=== PATIENT | female | born 1950 | race Caucasian/White ===

== ENCOUNTER 2019-05-31 12:26 | Inpatient (IN) | payer MEDICARE, OTHER ==
[~2019-05-31] VITALS: Ht 167.6 cm; Wt 96.2 kg
[~2019-05-31 12:26] MED LIST: ASPIRIN325 MG PO; LEXAPRO10 MG PO; LISINOPRIL40 MG PO; METFORMIN HCL500 MG PO; TYLENOL PM PO; TYLENOL WITH C1 EACH PO; ULTRAM50 MG PO
--- OUTSIDE RECORDS SUMMARY | 2019-05-31 12:29 | XMS REPORT ---
Author Author [facility] Address Unknown Phone Unavailable Care Team Providers Care Table Games Supervisor Name Role Phone Unavailable Unavailable Payers Payer Name Policy Type Policy Number Effective Date Expiration Date Problems This patient has no known problems. Allergies, Adverse Reactions, Alerts Allergy Name Allergy Type Status Severity Reaction(s) Onset Date Inactive Date Treating Clinician Comments No Known Allergies DA Active U 2018-07-29 00:00:00 No Known Allergies DA Active U 2018-01-27 00:00:00 Medications This patient has no known medications.
[2019-05-31] MEDS ORDERED: IPRATROPIUM BROMIDE 0.02% 2.5 ML NEB NEB STA (12:34)
[2019-05-31] MEDS ORDERED: ALBUTEROL SULF 0.083% NEB SOLN 3 ML NEB NEB STA (12:34)
--- NOTE | 2019-05-31 12:42 | NUR ---
BIPAP 15/04, RATE 14, 100%
--- NOTE | 2019-05-31 12:44 | NUR ---
BIPAP FIO2 DOWN TO 50% PT SATTING 97 NOW 09/07, RATE 12
[2019-05-31] MEDS ORDERED: FAMOTIDINE 20 MG/2 ML VIAL IV ONE (12:51)
[2019-05-31] MEDS ORDERED: AZITHROMYCIN 500MG/NS 250 ML 250 ML IV ONE (12:51)
[2019-05-31] MEDS ORDERED: CEFTRIAXONE SOD 1 GM/NS 50 ML 50 ML IV ONE (12:51)
[2019-05-31] MEDS ORDERED: SODIUM CHLORIDE 0.9% 1000ML 1,000 ML IV STA (12:51)
[2019-05-31] MEDS ORDERED: GLIPIZIDE10 MG PO (12:52)
[2019-05-31] MEDS ORDERED: CITALOPRAM HBR40 MG PO (12:52)
[2019-05-31] MEDS ORDERED: GEMFIBROZIL600 MG PEG (12:52)
[2019-05-31] MEDS ORDERED: HYDROCHLOROTH12.5 M1 PO (12:52)
[2019-05-31] MEDS ORDERED: AMLODIPINE BESY10 MG PO (12:52)
[2019-05-31] MEDS ORDERED: SODIUM CHLORIDE 0.9% 1000ML 1,000 ML IV SCH (12:58)
[2019-05-31] MEDS ORDERED: DEXTROSE 50% SYRINGE 50 ML IV PRN (13:00)
[2019-05-31] MEDS ORDERED: CEFTRIAXONE SOD 1 GRAM/0.9% SOD CHL 50ML BAG IV SCH (13:00)
[2019-05-31] MEDS ORDERED: CEFTRIAXONE SOD 1 GM/NS 50 ML 50 ML IV SCH ×2 (13:15→17:30)
[2019-05-31 13:16] LABS: BASOPHILS # (AUTO) 0.1 (0.0-0.1); BASOPHILS % 0.9 % (0.0-1.0); EOSINOPHILS # (AUTO) 0.1 (0.0-0.4); EOSINOPHILS % 0.6 % (0.0-6.0); HEMATOCRIT 27.7 % (34.2-44.1); HEMOGLOBIN 8.7 g/dL (12.0-16.0); LYMPHOCYTES # (AUTO) 1.7 (1.0-3.2); LYMPHOCYTES % 14.5 % (18.0-39.1); MEAN CORPUSCULAR HEMOGLOBIN 28.1 pg (28-32); MEAN CORPUSCULAR HGB CONC 31.4 g/dL (31-35); MEAN CORPUSCULAR VOLUME 89.4 fL (81-99); MONOCYTES # (AUTO) 1.2 (0.2-0.8); MONOCYTES % 10.1 % (4.4-11.3); NEUTROPHILS # (AUTO) 8.6 (2.1-6.9); NEUTROPHILS % 73.2 % (38.7-80.0); PLATELET COUNT 484 x10e3/uL (140-360); RED CELL DISTRIBUTION WIDTH 14.6 % (11.7-14.4)
[2019-05-31 13:26] LABS: BILIRUBIN,URINE SMALL (NEGATIVE); CLARITY,URINE SL CLOUDY (CLEAR); COLOR,URINE YELLOW (YELLOW); KETONES,URINE NEGATIVE (NEGATIVE); LEUKOCYTE ESTERASE ,URINE NEGATIVE (NEGATIVE); NITRITE,URINE NEGATIVE (NEGATIVE); URINE UROBILINOGEN 0.2 mg/dL (0.2 - 1)
[2019-05-31 13:30] LABS: PROTEIN,URINE DIPSTICK 3+ (NEGATIVE)
[2019-05-31 13:32] LABS: INR 1.01; PROTHROMBIN TIME 13.8 seconds (11.9-14.5)
[2019-05-31 13:33] LABS: PARTIAL THROMBOPLASTIN TIME 32.6 seconds (23.8-35.5)
[2019-05-31 13:38] LABS: ALBUMIN 2.7 g/dL (3.5-5.0); ALBUMIN/GLOBULIN RATIO 0.7 (0.8-2.0); ALKALINE PHOSPHATASE 82 IU/L (40-150); BLOOD UREA NITROGEN 30 mg/dL (7-26); BUN/CREATININE RATIO 19 (6-25); CARBON DIOXIDE 16 mmol/L (22-29); CHLORIDE 109 mmol/L (98-107); CREATINE KINASE 38 IU/L (29-168); CREATININE, SERUM 1.59 mg/dL (0.57-1.11); EST GLOMERULAR FILTRATION RATE 32 ML/MIN (60-); GLUCOSE 203 mg/dL (74-118); SODIUM 136 mmol/L (136-145)
[2019-05-31 13:50] LABS: B-TYPE NATRIURETIC PEPTIDE2 313.3 pg/mL (0-100)
[2019-05-31 13:55] LABS: ALANINE AMINOTRANSFERASE < 6 IU/L (0-55)
[2019-05-31 13:58] LABS: THYROID STIMULATING HORMONE 1.803 uIU/mL (0.350-4.940)
[2019-05-31] MEDS ORDERED: ASPIRIN 81 MG CHEW TAB PO ONE (14:00)
[2019-05-31 14:02] LABS: BACTERIA,URINE MODERATE /HPF; EPITHELIAL CELLS,URINE FEW /LPF
--- NOTE | 2019-05-31 14:59 | Diagnostic Imaging Report ---
Exam: Chest one view Clinical history: Respiratory distress Findings: Increased bilateral interstitial pulmonary markings are noted which may represent edema versus atypical pneumonitis. The cardiac size is in upper limits of normal. There is no evidence of pleural effusion or pneumothorax. The regional osseous structures are unremarkable. Signed by: Dr. Ilir Ferreira MD on 05/31/2019 2:55 PM
[2019-05-31] MEDS ORDERED: ALBUTEROL SULF 0.083% NEB SOLN 3 ML NEB NEB SCH (15:00)
[2019-05-31] MEDS ORDERED: FUROSEMIDE INJ 10 MG/ML 4 ML VIAL IV ONE (15:15)
[2019-05-31 15:29] LABS: ABG HCO3 15 mmol/L (23-28); ABG PCO2 31 mmHg (41-51); ABG PO2 142 mmHg (80-105)
[2019-05-31] MEDS: FUROSEMIDE INJ 10 MG/ML 2 ML VIAL IV SCH (17:04)
[2019-05-31] MEDS ORDERED: ALBUTEROL/IPRATROPIUM 3 ML NEB NEB PRN (17:30)
[2019-05-31] MEDS ORDERED: BENZONATATE 100 MG CAP PO PRN (17:30)
[2019-05-31] MEDS: INSULIN REGULAR, HUMAN 100 UNIT/1 ML 3ML VIAL SQ SCH ×2 (17:43→21:19)
[2019-05-31] MEDS ORDERED: HYDRALAZINE HCL 20 MG/ML VIAL IV PRN (17:45)
[2019-05-31] MEDS ORDERED: ONDANSETRON HCL INJ 2MG/ML 2ML 2 MG/ML VIAL IV PRN (17:45)
[2019-05-31 18:04] VITALS: BP 148/75
[2019-05-31 19:00] VITALS: BP 143/88
[2019-05-31] MEDS: IPRATROPIUM BROMIDE 0.02% 2.5 ML NEB NEB SCH (19:00)
[2019-05-31] MEDS: ALBUTEROL/IPRATROPIUM 3 ML NEB NEB SCH ×2 (19:25→22:55)
[2019-05-31 21:00] VITALS: BP 139/66
[2019-05-31] MEDS ORDERED: METFORMIN HCL 500 MG TAB PO ONE (21:00)
[2019-05-31] MEDS ORDERED: GEMFIBROZIL 600 MG TAB PO ONE (21:00)
[2019-05-31 22:16] LABS: CREATINE KINASE MB 0.7 ng/mL (0-5.0)
--- NOTE | 2019-05-31 23:34 | NUR ---
Report to MELLISA Negrete. Pt awake in room. Denies any needs
[2019-05-31 23:43] VITALS: BP 117/67
[2019-06-01] MEDS: IPRATROPIUM BROMIDE 0.02% 2.5 ML NEB NEB SCH ×4 (01:00→19:00)
[2019-06-01] MEDS: ALBUTEROL/IPRATROPIUM 3 ML NEB NEB SCH ×4 (03:15→15:10)
[2019-06-01 03:49] VITALS: BP 146/66
[2019-06-01 05:20] LABS: BASOPHILS # (AUTO) 0.1 (0.0-0.1); BASOPHILS % 0.9 % (0.0-1.0); EOSINOPHILS # (AUTO) 0.1 (0.0-0.4); EOSINOPHILS % 1.2 % (0.0-6.0); HEMATOCRIT 25.4 % (34.2-44.1); HEMOGLOBIN 7.7 g/dL (12.0-16.0); LYMPHOCYTES # (AUTO) 1.4 (1.0-3.2); LYMPHOCYTES % 16.2 % (18.0-39.1); MEAN CORPUSCULAR HEMOGLOBIN 27.8 pg (28-32); MEAN CORPUSCULAR HGB CONC 30.3 g/dL (31-35); MEAN CORPUSCULAR VOLUME 91.7 fL (81-99); MONOCYTES % 11.7 % (4.4-11.3); NEUTROPHILS % 69.7 % (38.7-80.0); PLATELET COUNT 389 x10e3/uL (140-360); RED BLOOD COUNT 2.77 x10e6/uL (3.6-5.1); RED CELL DISTRIBUTION WIDTH 14.4 % (11.7-14.4)
[2019-06-01 05:40] LABS: CHOL/HDL RATIO 4.2 (3.0-3.6)
[2019-06-01 05:49] LABS: CREATINE KINASE MB 0.8 ng/mL (0-5.0)
[2019-06-01 05:56] LABS: ALBUMIN 2.4 g/dL (3.5-5.0); ALBUMIN/GLOBULIN RATIO 0.8 (0.8-2.0); ALKALINE PHOSPHATASE 69 IU/L (40-150); ANION GAP 16.2 mmol/L (8-16); BLOOD UREA NITROGEN 31 mg/dL (7-26); BUN/CREATININE RATIO 21 (6-25); CALCIUM 9.2 mg/dL (8.4-10.2); CARBON DIOXIDE 17 mmol/L (22-29); CHLORIDE 111 mmol/L (98-107); EST GLOMERULAR FILTRATION RATE 35 ML/MIN (60-); GLUCOSE 110 mg/dL (74-118); POTASSIUM 5.2 mmol/L (3.5-5.1); SODIUM 139 mmol/L (136-145)
[2019-06-01 06:06] LABS: ALANINE AMINOTRANSFERASE < 6 IU/L (0-55)
--- NOTE | 2019-06-01 07:00 | NUR ---
Pt received resting in bed. Alert and oriented x4. On BIPAP. Oriented to staff and surroundings. Encouraged to press call fisher if help needed. Pt verbalized understanding of teaching. Call fisher within reach. Will monitor
[2019-06-01] MEDS ORDERED: FUROSEMIDE INJ 10 MG/ML 2 ML VIAL IV NR (07:30)
[2019-06-01] MEDS: INSULIN REGULAR, HUMAN 100 UNIT/1 ML 3ML VIAL SQ SCH ×4 (07:30→21:00)
[2019-06-01 07:40] VITALS: BP 126/69
[2019-06-01] MEDS: METFORMIN HCL 500 MG TAB PO SCH ×2 (08:55→18:11)
[2019-06-01] MEDS: FAMOTIDINE 20 MG TAB PO SCH ×2 (08:55→18:11)
[2019-06-01] MEDS: FUROSEMIDE INJ 10 MG/ML 2 ML VIAL IV SCH ×2 (08:55→18:11)
[2019-06-01] MEDS: GLIPIZIDE 5 MG TAB PO SCH ×2 (08:55→18:11)
[2019-06-01] MEDS: CITALOPRAM HYDROBROMIDE 20 MG TAB PO SCH (08:56)
[2019-06-01] MEDS: GUAIFENESIN 600MG/DEXTROMETHORPHAN 30MG TABSR PO SCH ×2 (08:56→18:11)
[2019-06-01] MEDS: GEMFIBROZIL 600 MG TAB PEG SCH ×2 (08:56→18:11)
[2019-06-01] MEDS: HYDROCHLOROTHIAZIDE 25 MG TAB PO SCH (08:56)
[2019-06-01] MEDS: ACETAMINOPHEN 325 MG TAB PO PRN (08:58)
[2019-06-01] MEDS ORDERED: NON-FORMULARY MEDICATION (Glipizide 10 MG) PO SCH (09:00)
[2019-06-01] MEDS ORDERED: NON-FORMULARY MEDICATION (Hydrochlorothiazide 12.5 MG) PO SCH (09:00)
[2019-06-01] MEDS ORDERED: NON-FORMULARY MEDICATION (Citalopram Hydrobromide (Citalopram Hbr) 40 MG) PO SCH (09:00)
[2019-06-01] MEDS ORDERED: LISINOPRIL 20 MG TAB PO SCH (09:00)
[2019-06-01] MEDS ORDERED: NON-FORMULARY MEDICATION (Lisinopril 40 MG) PO SCH (09:00)
[2019-06-01 11:30] VITALS: BP 140/70
[2019-06-01] MEDS ORDERED: SODIUM CHLORIDE 0.9% 250ML 250 ML ONE (11:39)
[2019-06-01] MEDS: AMLODIPINE BESYLATE 10 MG TAB PO SCH ×2 (12:23→18:12)
[2019-06-01] MEDS: CEFTRIAXONE SOD 1 GM/NS 50 ML 50 ML IV SCH (12:23)
[2019-06-01] MEDS ORDERED: AZITHROMYCIN 500MG/SOD CHL 0.9% 250ML BAG IV SCH (13:00)
[2019-06-01] MEDS: AZITHROMYCIN 500MG/NS 250 ML 250 ML IV SCH (13:04)
[2019-06-01 17:25] VITALS: BP 143/83
--- NOTE | 2019-06-01 17:25 | Diagnostic Imaging Report ---
EXAM: CT Chest WITHOUT contrast 06/01/2019 3:10 PM INDICATION: ^Bilateral interstitial infiltrates COMPARISON: Chest x-ray, 05/31/2018 TECHNIQUE: Chest was scanned utilizing a multidetector helical scanner from the lung apex through the level of the adrenal glands without administration of IV contrast. Absence of intravenous contrast decreases sensitivity for detection of lymphadenopathy and vascular pathology. Coronal and sagittal reformations were obtained. Routine protocol was performed. Dose modulation, iterative reconstruction, and/or weight based adjustment of the mA/kV was utilized to reduce the radiation dose to as low as reasonably achievable. IV CONTRAST: None RADIATION DOSE: Total DLP: 691.88 mGy*cm Estimated effective dose: (DLP x 0.014 x size factor) mSv COMPLICATIONS: None FINDINGS: LINES/ TUBES: None. LUNGS AND AIRWAYS: There is moderate peribronchial airspace opacity with groundglass opacity in both lower lobes, greater on the right, likely representing atelectasis. Patchy groundglass opacity is also seen in the right middle lobe. There is no evidence for interstitial lung disease or honeycombing. No pulmonary nodules. Trachea and main bronchi are clear. PLEURA: There are bilateral small pleural effusions, greater on the right with tracking into the minor fissure. HEART AND MEDIASTINUM: The thyroid gland is normal. No mediastinal, hilar or axillary lymphadenopathy. Scattered mildly prominent mediastinal nodes, largest measuring 8 mm right paratracheal, likely reactive. The heart is normal in size.. There is a small pericardial effusion which measures a maximum 1.3 cm thickness posteriorly. The thoracic aorta is atherosclerotic with scattered calcified plaques and no dilatation. There is extensive coronary artery calcification seen. Ascending thoracic aorta measures 3.4 cm. The main pulmonary artery is dilated measuring 4.4 cm diameter. UPPER ABDOMEN: Included portions of the unenhanced liver unremarkable. Splenic calcified granulomata are seen. Cholecystectomy clips are noted. Included portions of the unenhanced pancreas, adrenals and kidneys show no evidence for focal pathology. BONES: No acute or suspicious bony lesions. There are degenerative changes in the spine with disc calcifications at multiple levels. A posterior osteophyte protrudes into the spinal canal at the T8-9 level. SOFT TISSUES: Superficial surrounding soft tissue unremarkable. IMPRESSION: 1. Bilateral lower lobe atelectasis, with dense airspace consolidation greater on the right. Underlying infection cannot be excluded. 2. Small bilateral pleural effusions, greater on the right. 3. No evidence for interstitial lung disease. 4. Small pericardial effusion. 5. Dilated main pulmonary artery which may be seen with pulmonary hypertension. 6. Extensive coronary artery calcification. Signed by: Dr. Negrito Mcintyre M.D. on 06/01/2019 5:22 PM
[2019-06-01 19:00] VITALS: BP 148/78
--- NOTE | 2019-06-01 19:39 | NUR ---
Patient sugar 52 repeat 51, dextrose 50 was administered, informed Urvashi Rashid (EDUCATION COURSES SALES REPRESENTATIVE) and ordered to hold all insulins and dc glipizide. patient is stable and communicating
[2019-06-01 21:00] VITALS: BP 148/78
--- NOTE | 2019-06-01 21:40 | Consultation ---
DATE OF CONSULTATION: Pulmonary Critical Care consultation CHIEF COMPLAINT: Dyspnea and fevers. HISTORY OF PRESENT ILLNESS: The patient is a 68-year-old woman. She denies any prior lung disease. She has never used inhalers. She has no asthma or COPD. Several days ago, she noticed some dyspnea. She also had mild cough and some low-grade fevers. She went to the Emergency Department and was found to have bilateral interstitial infiltrates. She was subsequently given some antibiotics and admitted. PAST SURGICAL HISTORY: 1. Status post cholecystectomy. 2. Status post carpal tunnel surgery. PAST MEDICAL HISTORY: 1. No prior pulmonary disease. 2. Hypertension. 3. Type 2 diabetes. FAMILY HISTORY: The patient's mother had cancer. SOCIAL HISTORY: The patient is not an active smoker. She is not an active drinker. ALLERGIES: SHE REPORTS BEING ALLERGIC TO HYDROCODONE. REVIEW OF SYSTEMS: GENERAL: The patient did have some fevers. She had no headache. She has no neck pain. She is not complaining of sore throat. She has no chest pain. She does note dyspnea and cough. She has no abdominal pain. There is no nausea or vomiting. She has no leg swelling. SKIN: Shows no rashes. NEUROLOGIC: Shows no focal abnormalities. PHYSICAL EXAMINATION: VITAL SIGNS: Blood pressure is 140/70 and saturation is 98% on 4 L. HEENT: Shows no facial swelling or erythema. CARDIAC: Reveals regular rate and rhythm with normal S1, S2. There are no murmurs or rubs. LUNGS: Auscultation of lungs revealed a few crackles at the bases. There is no wheezing. ABDOMEN: Soft, nontender. There is no rebound or guarding. EXTREMITIES: Show no leg edema or calf tenderness. There is no cyanosis or clubbing. SKIN: Shows no rashes. NEUROLOGICAL: Shows no focal abnormalities. LABORATORY DATA: Blood gases, 7.3 with CO2 of 31, O2 of 142, and bicarb of 15. White blood cell count is 8.6, hemoglobin is 7.7, and platelet count is 389. BUN-creatinine ratio is 31-1.5. Carbon dioxide is 17. Albumin is 2.4. Urinalysis shows 3+ protein and 2+ glucose. RADIOGRAPHIC DATA: Chest x-ray shows increased bilateral interstitial markings, which represent pneumonitis versus edema. Cardiac silhouette is mildly enlarged. IMPRESSION: 1. Community-acquired pneumonia with sepsis, present on admission. 2. Hypertension. 3. Diabetes. 4. Interstitial changes on chest x-ray with a large cardiac silhouette. PLAN: 1. Continue current antibiotics. 2. Echocardiogram and Cardiology evaluation. 3. Wean the patient off BiPAP as tolerated. 4. CT scan of the chest with contrast. MD MARIN Mansfield/BACILIO /[id number]
[2019-06-02] VITALS (8 sets, daily range): BP systolic 110–139; BP diastolic 56–97
[2019-06-02] MEDS: IPRATROPIUM BROMIDE 0.02% 2.5 ML NEB NEB SCH ×5 (01:00→23:18)
--- NOTE | 2019-06-02 01:46 | NUR ---
patient received dextrose for fs of 37, rechecked and its 108.
--- NOTE | 2019-06-02 04:00 | NUR ---
unable to draw labs, tried two times, team made aware, Urvashi(HOSE MENDER) called.
[2019-06-02 06:14] LABS: BASOPHILS # (AUTO) 0.1 (0.0-0.1); BASOPHILS % 0.8 % (0.0-1.0); EOSINOPHILS # (AUTO) 0.1 (0.0-0.4); EOSINOPHILS % 1.9 % (0.0-6.0); HEMATOCRIT 24.7 % (34.2-44.1); HEMOGLOBIN 7.5 g/dL (12.0-16.0); LYMPHOCYTES # (AUTO) 1.1 (1.0-3.2); LYMPHOCYTES % 14.2 % (18.0-39.1); MEAN CORPUSCULAR HEMOGLOBIN 27.9 pg (28-32); MEAN CORPUSCULAR HGB CONC 30.4 g/dL (31-35); MEAN CORPUSCULAR VOLUME 91.8 fL (81-99); MONOCYTES # (AUTO) 0.7 (0.2-0.8); MONOCYTES % 9.9 % (4.4-11.3); NEUTROPHILS # (AUTO) 5.4 (2.1-6.9); NEUTROPHILS % 72.7 % (38.7-80.0); PLATELET COUNT 412 x10e3/uL (140-360); RED BLOOD COUNT 2.69 x10e6/uL (3.6-5.1); RED CELL DISTRIBUTION WIDTH 14.8 % (11.7-14.4); RETICULOCYTE % 1.8 % (0.8-2.2)
[2019-06-02] MEDS: ALBUTEROL/IPRATROPIUM 3 ML NEB NEB SCH ×4 (06:55→22:34)
--- NOTE | 2019-06-02 07:15 | NUR ---
Pt received resting in recliner. On Oxygen at 7L nasal cannula. No s/s of SOB noted or voiced. Oriented to staff and surrounding. Call fisher within reach. Will monitor
--- NOTE | 2019-06-02 07:20 | NUR ---
Patient endorsed to next shift for continuity of care.
[2019-06-02] MEDS: INSULIN REGULAR, HUMAN 100 UNIT/1 ML 3ML VIAL SQ SCH ×4 (07:30→19:47)
[2019-06-02 07:36] LABS: ANION GAP 18.4 mmol/L (8-16); CREATININE, SERUM 1.66 mg/dL (0.57-1.11)
[2019-06-02 07:37] LABS: POTASSIUM 5.4 mmol/L (3.5-5.1)
[2019-06-02 07:51] LABS: FERRITIN 107.95 ng/mL (4.63-204.00)
--- NOTE | 2019-06-02 09:01 | Progress Note ---
DATE: SUBJECTIVE: The patient is concerned about leg edema. Has not improved with the Lasix. She reports less dyspnea and less cough. She is off BiPAP. PHYSICAL EXAMINATION: VITAL SIGNS: The patient is afebrile. The saturation is 93% on 5 L. The blood pressure is 129/97 and the pulse is 97. Respiratory rate is normal. HEENT: Shows no facial swelling or erythema. LYMPHATIC: Shows no submandibular, cervical, or supraclavicular adenopathy. CARDIAC: Reveals a regular rate and rhythm with a normal S1 and S2. LUNGS: Auscultation of lungs reveals clear breath sounds bilaterally. There is no wheezing. ABDOMEN: Soft and nontender. There is no rebound or guarding. EXTREMITIES: Show 1 to 2+ leg edema bilaterally. LABORATORY DATA: BUN to creatinine ratio is increased to 33/1.66 and the potassium is 5.4. The carbon dioxide is 16. Total albumin is low at 2.4. The hemoglobin is 7.5 and the iron saturation is 5%. The iron level is 15. IMPRESSION: 1. Aspiration pneumonia with sepsis, present on admission. 2. Proteinuria with decreased albumin and leg edema. 3. Chronic renal insufficiency, stage 3. 4. Diabetes. 5. Anemia secondary to chronic blood loss. PLAN: 1. Continue current antibiotics. 2. Speech therapy evaluation. 3. Nephrology consultation for proteinuria and decreased albumin. 4. GI consultation for microcytic anemia and iron deficiency. 5. Wean oxygen as tolerated. 6. Monitor nutritional status. Cristobal Donahue MD [facility]/MODL /[id number]
[2019-06-02] MEDS: FAMOTIDINE 20 MG TAB PO SCH ×2 (09:03→16:56)
[2019-06-02] MEDS: GEMFIBROZIL 600 MG TAB PEG SCH ×2 (09:03→16:56)
[2019-06-02] MEDS: GUAIFENESIN 600MG/DEXTROMETHORPHAN 30MG TABSR PO SCH ×2 (09:03→16:56)
[2019-06-02] MEDS: HYDROCHLOROTHIAZIDE 25 MG TAB PO SCH (09:03)
[2019-06-02] MEDS: CITALOPRAM HYDROBROMIDE 20 MG TAB PO SCH (09:03)
[2019-06-02] MEDS: FUROSEMIDE INJ 10 MG/ML 2 ML VIAL IV SCH ×2 (09:03→16:56)
[2019-06-02] MEDS: AMLODIPINE BESYLATE 10 MG TAB PO SCH ×2 (09:03→16:56)
[2019-06-02] MEDS: METFORMIN HCL 500 MG TAB PO SCH (09:03)
--- NOTE | 2019-06-02 09:05 | NUR ---
All meds given as ordered. Saturation 88% on 7L NC. Increased oxygen to 8L NC. Respiratory therapist notified. Pt placed on high flow oxygen tubing. Sats now 91-94%. Call fisher within reach. Will monitor
--- NOTE | 2019-06-02 09:23 | NUR ---
Dr Gay Forrest & Dr. Ring notified regarding consults
[2019-06-02] MEDS ORDERED: SOD POLYSTYRENE SULFONATE SUSP 15 GM/60 ML BTL PO ONE (10:00)
[2019-06-02] MEDS: CEFTRIAXONE SOD 1 GM/NS 50 ML 50 ML IV SCH (11:53)
--- NOTE | 2019-06-02 12:31 | NUR ---
pt's HR 131-146. Pt very anxious. and son at bedside. Called Shakila (KULWANT) EKG, cardiac enzymes and cardiology consult ordered. Will follow up
[2019-06-02] MEDS: AZITHROMYCIN 500MG/NS 250 ML 250 ML IV SCH (13:00)
[2019-06-02] MEDS: METOPROLOL TARTRATE 25 MG TAB PO SCH ×3 (13:10→23:38)
--- NOTE | 2019-06-02 13:15 | NUR ---
Dr. Pastor at nursing station advised of consult. Metoprolol 25mg PO given as ordered. Call fisher within reach. Will monitor
--- NOTE | 2019-06-02 13:15 | NUR ---
Pt placed back on BIPAP after Lunch. Sats 81-88% on 8L high flow oxygen. Will closely monitor
[2019-06-02 13:28] LABS: CREATINE KINASE MB 1.5 ng/mL (0-5.0)
[2019-06-02] MEDS: FLUCONAZOLE 200 MG/100 ML 100 ML IV SCH (14:00)
--- NOTE | 2019-06-02 14:00 | NUR ---
Pt had an episode of bowel incontinence. Emotional support given. Unable to start 24hr urine collection. Dr. Palmira Donahue notified. Rocha ordered. Will follow up
--- NOTE | 2019-06-02 14:30 | NUR ---
Rocha inserted under sterile technique at 1420. Urine collection started. Will monitor
--- NOTE | 2019-06-02 14:59 | NUR ---
Nutrition Intervention Note RD Recommendation(s) for Physician: Continue diet as ordered. Consider a 2000mg potassium restriction if K remains elevated. Plan of Care: RD following, monitoring for tolerance and adequacy Nutrition reason for involvement: MD Consult - aspiration pneumonia RD Assessment Initial encounter with patient. Diet Hx: Pt has no known food allergies. Pt states that she follows a low carbohydrate diet at home. Pt is also fearful that she may be aspirating and concerned about high blood glucose levels. Pt had a blood glucose level of 52 and has been encouraged to eat diabetes medications were held. Awaiting MBS which is scheduled on 06/05. Pt denies any nausea, vomiting or diarrhea. Pt denies any chewing/biting difficulty. Principal Problems/Diagnoses: Bacterial pneumonia, dyspnea PMH: CVA, HTN, T2DM GI:soft nontender, Skin: intact skin Labs: (06/02/2019) blood glucose level 52, K 5.4, Na 141, Bun/Cr 33/1.66 Meds: (06/02/19) lasix Ht:66 in. Wt:237lbs BMI:38.3kg/M2 IBW:130lbs Malnutrition Evaluation (06/02/19) The patient does not meet criteria for a specified degree of malnutrition at this time. Will re-evaluate at follow-up as appropriate. Nutrition Prescription (Diet Order):1800 ADA Estimated Nutritional Needs: 2154 calories/day ( 1kcal/kg/BW) 107g protein/day ( 1g pro/kg/ BW) Diet Adequacy: Not meeting calorie needs, Not meeting protein needs Diet Education Needs Assessment: Diet education indicated, but patient declined. Nutrition Care Level: Moderate Nutrition Diagnosis: Inadequate oral food and beverage intake related to fear of aspiration as evidenced by Pt eating less than 50% of meal tray Goal: Patient will meet 75-100% of estimated needs by follow up Progress: Progressing Interventions: modified diet Monitoring/Evaluation: Total energy intake, Total protein intake, Weight change Signed: Sathish Gonzalez RD, LD, CNSC
--- NOTE | 2019-06-02 15:35 | NUR ---
Pt with blood sugar 46. Pt c/o "feeling bad". D50 one amp given. Will follow up
--- NOTE | 2019-06-02 16:00 | NUR ---
Blood sugar 123. Encouraged to consume dinner. Placed on 10L NC. Will closely monitor
--- NOTE | 2019-06-02 16:15 | NUR ---
Pt converted back to Sinus rhythm at 1613. Emotional support given. Pt had second episode of incontinence, Care provided. Will monitor
--- NOTE | 2019-06-02 17:33 | NUR ---
Pt vomited about 240ml of Milk that she drank with dinner. Zofran given. Sats now 92-93% on BIPAP. Will closely monitor
--- NOTE | 2019-06-02 18:28 | NUR ---
Pt is currently resting in bed. Saturation 92% on BIPAP. No c/o SOB noted or voiced. Will monitor
--- NOTE | 2019-06-02 20:24 | Consultation ---
DATE OF CONSULTATION: 06/02/2019 Cardiac Consultation REASON FOR CONSULTATION: Atrial fibrillation, respiratory distress. HISTORY: A 68-year-old lady, who is known with longstanding history of hypertension, diabetes mellitus. The patient is in her usual status of health. She started having fever, chills, or cough. She was very ill. She came to the emergency room. She was diagnosed with community-acquired pneumonia with consolidation of the right lung. The patient is started on IV antibiotics, it was noted she is in renal failure with creatinine of 1.8. Furthermore, she was noted to have severe anemia with iron saturation at only 5%. Her BUN and creatinine were elevated. She did have proteinuria in her urine. The patient started on IV antibiotics. Today, all suddenly, the patient went to atrial fibrillation with rapid ventricular response, cardiac consultation was obtained. I visited with the patient and she is currently on BiPAP. She is having difficulty breathing. She just went to atrial fibrillation. She is very apprehensive and she is very anxious. Prior to this illness, the patient is relatively active with no angina and no congestive heart failure symptoms. There is no prior history of chronic lung disease. She does have easy fatigability and some shortness of breath on exertion. She attributed that to her being older and being a little bit overweight. Her illness started differently with upper respiratory tract like infection and subsequently she had this pneumonia. She is seen and evaluated by Pulmonary and she is on medication. REVIEW OF SYSTEMS: Extensive to all systems, will be summarized for clarity. GENERAL: Fever, chills of few days duration. HEENT: Congestion. PULMONARY: Cough, severe shortness of breath. Pleuritic chest pain. CARDIAC: No prior arrhythmias. No prior angina. No orthopnea. No paroxysmal nocturnal dyspnea. GI: No hematemesis. No melena. : Increased frequency of urination. MUSCULOSKELETAL: Occasional back pain. NEUROLOGICAL: Occasional headache. No seizure activity. HEMATOLOGY: No easy bruising or bleeding. SKIN: No skin rashes. ENDOCRINE: She is diabetic of many years' duration, followed by Dr. Chapa. SOCIAL HISTORY: She is . She is taking care of with Alzheimer's and the young adopted son at age 11. She is nonsmoker and non-alcohol drinker. PAST MEDICAL HISTORY: 1. Hypertension. 2. Diabetes mellitus. 3. Cholecystectomy. 4. Carpal tunnel surgery. 5. Hyperlipidemia. HOME MEDICATIONS: Long list including lisinopril 40 mg a day, Norvasc 10 mg twice a day, Lopid 600 mg twice a day, hydrochlorothiazide 12.5 mg a day, aspirin 81 mg a day, glipizide 10 mg a day, metformin 500 mg twice a day, and citalopram 40 mg a day. ALLERGIES: HYDROCODONE. FAMILY HISTORY: Father of complication of diabetes mellitus. Mother of non-Hodgkin lymphoma at age 74. Two brothers and one sister, both brother had already cardiac stent. She does have a 37-year-old daughter and she does have also grand children. She does have 11 years adopted son. PHYSICAL EXAMINATION: VITAL SIGNS: Height of 5 feet 6 inches, weight of 200 pounds. Blood pressure 120/80, heart rate of 130 per minute, irregularly irregular of atrial fibrillation, respiratory rate of 20, and temperature of 98.2 Fahrenheit. HEENT: The patient on BiPAP. NECK: No elevation of jugular venous pulsation. CHEST: Decreased lung entry and crackles, right lung. HEART: Irregularly irregular rate of atrial fibrillation. Normal first and second heart sounds. Soft ejection systolic murmur. ABDOMEN: Obesity. Bowel sounds are present. No organomegaly. EXTREMITIES: Peripheral edema bilaterally, more pronounced around the right ankle area. The patient had right ankle fracture in the past. NEUROLOGIC: Awake, alert, oriented. She is apprehensive. LAB DATA: Lipid profile showed triglycerides of 111, cholesterol of 140, HDL of 33, LDL of 85. ABG showed pH of 7.30, pCO2 of 31, PO2 of 142. Sodium of 141, potassium of 5.4, BUN of 36, creatinine of 1.7, bicarb of 16, iron saturation of only 5%. BNP of 403. White blood cell count of 7.47, hemoglobin 7.5, hematocrit 25%, MCV is low, platelet count of 112. IMPRESSION AND PLAN: 1. Pneumonia. 2. Respiratory distress, on BiPAP. 3. Hypertension. 4. Diabetes mellitus. 5. [id number] renal insufficiency. 6. Protein urea. 7. Anemia, iron deficiency by lab work. Cardiac huffman, I would recommend beta-jamaal and observation of the heart rate. No anticoagulation, secondary to anemia iron deficiency anemia. Stop RILEY/ HCTZ and other possible nephrotoxic agents, decreasing Norvasc 2/2 to relative Hypotension. Treating underlying pneumonia. The patient had echocardiogram done on the , we will review it. Supportive care to be done. Workup for the iron deficiency anemia, GI losses. Workup for proteinuria, and most likely secondary to diabetes. MD TREY Perez/BACILIO /[id number] MTDD
--- NOTE | 2019-06-02 21:34 | Consultation ---
DATE OF CONSULTATION: REASON FOR CONSULTATION: Chronic kidney disease, stage 3, volume overload, proteinuria. HISTORY OF PRESENT ILLNESS: The patient is a pleasant 68-year-old female with past medical history of diabetes type 2 for 10 years, hypertension for more than 10 years, who was admitted with low-grade fever and shortness of breath. The patient had a chest x-ray done that showed bilateral interstitial infiltrates, had a CT of the chest done without IV contrast that showed bilateral lower lobe consolidation greater on the right, small bilateral pleural effusion. No evidence of interstitial lung disease and small pericardial effusion with dilated main pulmonary artery that may be seen with pulmonary hypertension and extensive coronary artery calcification. On admission, the patient had a creatinine of 1.59. The patient was started on IV Lasix 20 mg q.12 hours. She was on hydrochlorothiazide at home which was stopped. She was also on lisinopril and metformin, both of which were put on hold. Her creatinine this morning is at 1.66 and her potassium was elevated at 5.4. Her CO2 is at 16. Currently, on BIPAP with shortness of breath. The patient was seen by pulmonary critical care and currently on ceftriaxone and azithromycin. The patient denies taking any NSAID. PAST MEDICAL HISTORY: As above. PAST SURGICAL HISTORY: Cholecystectomy, carpal tunnel surgery. FAMILY HISTORY: Mother had cancer, was on dialysis. SOCIAL HISTORY: No history of smoking, alcohol or intravenous drug abuse. ALLERGIES: HYDROCODONE. REVIEW OF SYSTEMS: GENERAL: No fatigue. Positive fever. No chills. HEENT: No headache or blurry vision. NECK: No dysphagia. CARDIOVASCULAR: No chest pain. No PND. No orthopnea. RESPIRATORY: Positive shortness of breath. No cough. No hemoptysis. GI: No nausea, vomiting, diarrhea, constipation or abdominal pain. No hematemesis. No melena. MUSCULOSKELETAL: Positive for ankle swelling. NEUROLOGIC: No numbness, weakness or tingling. SKIN: No new rash. PHYSICAL EXAMINATION: VITAL SIGNS: Blood pressure 141/70, pulse of 136, temperature 98.1, 94% on 5 liters. GENERAL: Awake, alert and oriented x3, not in apparent distress. HEENT: PERRLA. Extraocular movements intact. NECK: No JVD. HEART: S1 and S2. LUNGS: Decreased breath sounds at the bases. ABDOMEN: Soft, nontender and nondistended. Bowel sounds positive. Obese. EXTREMITIES: Trace bilateral lower extremity swelling. NEUROLOGIC: No focal deficits. SKIN: No new rash. LABORATORY DATA: Sodium 141, potassium 5.4, chloride 112, CO2 of 16, BUN 33, creatinine 1.6, glucose 79, calcium is 10, BNP 403. Cardiac enzymes negative. INR 1.01. Urine showed moderate bacteria, 3+ protein, 2+ glucose, rbc 6 to 10. cANCA AND pANCA atypical, pANCA pending. Urine culture negative. Blood culture so far negative. CT of the chest as per HPI. ASSESSMENT AND PLAN: 1. CKD stage 3, likely the patient has chronic kidney disease from diabetes plus minus hypertension. Followup on the renal ultrasound. Holding RILEY inhibitor for now but we need to get restarted when serum creatinine is stable on discharge. Avoid all other nephrotoxic medications. Agree with holding metformin for now. Repeat lab in the morning. 2. Hypertension. We will control. 3. Diabetes type 2 per primary. 4. Hyperkalemia. The patient has hyperchloremic metabolic acidosis. 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 Kayexalate was given. Repeat the lab in the morning. May need p.o. sodium bicarbonate if CO2 remains low tomorrow. 5. Pneumonia. Continue with the antibiotic by Pulmonary and Critical Care. Thank you Dr. Adan and Dr. Donahue for the consult. We will follow the patient with you. Brigitte Ring MD [facility]/MODL /[id number]
[2019-06-02] MEDS: MELATONIN 5 MG TABLET PO PRN (21:52)
--- NOTE | 2019-06-02 23:06 | NUR ---
patient transferred from ICU she is awake alert oriented, speaking Syriac, daughter on bed side. no distress noted. vitaks checked, blood sugar checked, linen changed. will continue to monitor. Addendum: 06/02/19 at 2307 by Jerod Kramer RN wrong patient.
[2019-06-02] MEDS: ACETAMINOPHEN 325 MG TAB PO PRN (23:37)
[2019-06-03] VITALS (7 sets, daily range): BP systolic 106–135; BP diastolic 64–94
--- NOTE | 2019-06-03 00:24 | NUR ---
random blood sugar check was done and it was 54, patient was awake and alert, she ate snacks and drink orange juice, re checked again blood sugar was 80.
[2019-06-03] MEDS ORDERED: CYANOCOBALAMIN INJ 1,000 MCG/ML VIAL IM ONE (01:45)
[2019-06-03] MEDS: ALBUTEROL/IPRATROPIUM 3 ML NEB NEB SCH ×6 (02:30→22:00)
[2019-06-03] MEDS: METOPROLOL TARTRATE 25 MG TAB PO SCH ×3 (06:12→17:40)
[2019-06-03 06:22] LABS: BASOPHILS # (AUTO) 0.1 (0.0-0.1); BASOPHILS % 0.8 % (0.0-1.0); EOSINOPHILS # (AUTO) 0.3 (0.0-0.4); HEMATOCRIT 26.7 % (34.2-44.1); HEMOGLOBIN 8.2 g/dL (12.0-16.0); LYMPHOCYTES # (AUTO) 1.7 (1.0-3.2); LYMPHOCYTES % 19.1 % (18.0-39.1); MEAN CORPUSCULAR HEMOGLOBIN 27.9 pg (28-32); MEAN CORPUSCULAR HGB CONC 30.7 g/dL (31-35); MEAN CORPUSCULAR VOLUME 90.8 fL (81-99); MONOCYTES # (AUTO) 0.9 (0.2-0.8); MONOCYTES % 9.7 % (4.4-11.3); NEUTROPHILS # (AUTO) 5.9 (2.1-6.9); NEUTROPHILS % 66.9 % (38.7-80.0); PLATELET COUNT 536 x10e3/uL (140-360); RED BLOOD COUNT 2.94 x10e6/uL (3.6-5.1); RED CELL DISTRIBUTION WIDTH 14.6 % (11.7-14.4)
[2019-06-03] MEDS: IPRATROPIUM BROMIDE 0.02% 2.5 ML NEB NEB SCH ×4 (06:31→22:04)
--- NOTE | 2019-06-03 07:00 | NUR ---
Dr. Adan notified of patient glucose 36 per lab draw, patient awake alert and oriented x3, verbalizing needs. patient given snack orange juice. finger checked glucose 71.
[2019-06-03 07:02] LABS: ALBUMIN 2.6 g/dL (3.5-5.0); ALBUMIN/GLOBULIN RATIO 0.6 (0.8-2.0); CALCIUM 10.3 mg/dL (8.4-10.2); CREATININE, SERUM 1.72 mg/dL (0.57-1.11)
[2019-06-03] MEDS: GUAIFENESIN 600MG/DEXTROMETHORPHAN 30MG TABSR PO SCH ×2 (09:49→16:23)
[2019-06-03] MEDS: FOLIC ACID 1 MG TAB PO SCH (09:50)
[2019-06-03] MEDS: AMLODIPINE BESYLATE 10 MG TAB PO SCH ×2 (09:50→16:25)
[2019-06-03] MEDS: GEMFIBROZIL 600 MG TAB PEG SCH ×2 (09:50→16:23)
[2019-06-03] MEDS: FAMOTIDINE 20 MG TAB PO SCH ×2 (09:50→16:23)
[2019-06-03] MEDS: CITALOPRAM HYDROBROMIDE 20 MG TAB PO SCH (09:50)
[2019-06-03] MEDS: FUROSEMIDE INJ 10 MG/ML 2 ML VIAL IV SCH ×2 (09:51→16:23)
[2019-06-03] MEDS: CYANOCOBALAMIN INJ 1,000 MCG/ML VIAL IM SCH (09:51)
[2019-06-03] MEDS: IRON SUCROSE 100 MG in SODIUM CHLORIDE 0.9% 100 ML 100 ML IV SCH (09:52)
--- NOTE | 2019-06-03 11:12 | Progress Note ---
DATE: Pulmonary Critical Care Progress Note SUBJECTIVE: The patient is symptomatically improved, but required BiPAP because of some desaturations. She has less leg edema. She was seen by GI as well as Nephrology yesterday. PHYSICAL EXAMINATION: VITAL SIGNS: The patient is afebrile. The blood pressure is 106/93, the saturation is 96%. HEENT: Shows no facial swelling or erythema. CARDIAC: Reveals a regular rate and rhythm with a normal S1 and S2. There are no murmurs or rubs heard. LUNGS: Auscultation of lungs reveals clear breath sounds bilaterally. There is no wheezing. ABDOMEN: Soft, nontender. There is no rebound or guarding. EXTREMITIES: Show no leg edema or calf tenderness. There is no cyanosis or clubbing. SKIN: Shows no rashes. NEUROLOGICAL: Shows no focal abnormalities. LABORATORY DATA: Hemoglobin is 8.2 and white blood cell count is 8.8. The platelet count is 536. The BUN to creatinine ratio is 36 to 1.72. The carbon dioxide is 20. IMPRESSION: 1. Pneumonia with sepsis on admission. 2. Chronic renal failure, failure stage 3. 3. Diabetes. 4. Hypertension. PLAN: 1. The patient will have a repeat chest x-ray tomorrow. 2. Continue antibiotics. 3. Await results of 24 hour urine for total protein. Cristobal Donahue MD [facility] /[id number]
[2019-06-03] MEDS: CEFTRIAXONE SOD 1 GM/NS 50 ML 50 ML IV SCH (12:10)
[2019-06-03] MEDS: AZITHROMYCIN 500MG/NS 250 ML 250 ML IV SCH (13:05)
[2019-06-03] MEDS: FLUCONAZOLE 200 MG/100 ML 100 ML IV SCH (14:42)
[2019-06-03] MEDS: ACETAMINOPHEN 325 MG TAB PO PRN (14:47)
--- NOTE | 2019-06-03 15:21 | Diagnostic Imaging Report ---
TECHNIQUE: Ultrasound evaluation of the abdomen. Color doppler was utilized to supplement the evaluation. HISTORY: Evaluate for hepatosplenomegaly COMPARISON: CT of the chest June 01, 2019. DISCUSSION: LIVER: No focal lesion is identified. The liver measures 19 cm in the right midclavicular line. BILIARY: Status post cholecystectomy. The common bile duct measures 0.4 cm. PANCREAS: Incompletely visualized due to overlying bowel gas, but no abnormality identified involving the visualized portions of the pancreas. SPLEEN: No splenomegaly. PERITONEUM: No free fluid. KIDNEYS: Right: Measures 13 cm in length. No hydronephrosis or solid mass lesion identified. Left: Measures 12 cm in length. No hydronephrosis or solid mass lesion identified. VASCULATURE: Aorta: Limited evaluation secondary to regional bowel gas. Interior vena cava: Visualized portions appear unremarkable. Portal Vein: Borderline enlarged, hepatopedal flow. Other: Bilateral pleural effusions. IMPRESSION: 1. Hepatomegaly. 2. Bilateral pleural effusions. 3. Status post cholecystectomy. Signed by: Kenny Neely.O., M.M.M. on 06/03/2019 3:17 PM
[2019-06-03] MEDS ORDERED: HYDROCODONE/APAP 5MG-325MG TAB PO PRN (17:00)
[2019-06-03 18:01] LABS: TOTAL PROTEIN 24HR, URINE 1755.6 mg/24hr (50-100); TOTAL PROTEIN, URINE 92.4 mg/dL (1-14)
--- NOTE | 2019-06-03 19:00 | NUR ---
Walking rounds done and report received. Patient is awake and alert, currently on Bipap with saturations 94-96%. POC discussed. Patient instructed to call for assistance as needed and verbalized understanding. Call fisher within reach.
--- NOTE | 2019-06-03 20:15 | NUR ---
Patient sat up in bed, took Bipap off without calling for assistance. Patient stated she knew what she was doing, saturation 78% without Bipap. Educated patient on importance of complying with wearing Bipap. Bipap placed and saturation back up to 95%. Patient very tearful and stated she was ready to go home and hated being away from her family. She spoke to daughter on phone and calmed down. Patient reassured and assisted back to bed. Patient was again instructed to call for assistance prior to getting up and not to remove Bipap without calling. Patient verbalized understanding. Call fisher within reach. Will continue to monitor.
--- NOTE | 2019-06-03 22:30 | NUR ---
Patient called assisted to bathroom with walker and O2 via NC. She was able to void and assisted back to bed. Bipap placed back on. Call fisher within reach.
[2019-06-03] MEDS: MELATONIN 5 MG TABLET PO PRN (23:20)
[2019-06-04] VITALS (8 sets, daily range): BP systolic 108–144; BP diastolic 61–93
--- NOTE | 2019-06-04 00:20 | NUR ---
Patient resting in bed in NAD. Bipap remains on saturations 95-99%. Call fisher within reach.
[2019-06-04] MEDS: ALBUTEROL/IPRATROPIUM 3 ML NEB NEB SCH ×6 (02:30→23:44)
[2019-06-04] MEDS: ACETAMINOPHEN 325 MG TAB PO PRN (03:37)
[2019-06-04 03:39] LABS: BASOPHILS # (AUTO) 0.1 (0.0-0.1); BASOPHILS % 1.3 % (0.0-1.0); EOSINOPHILS # (AUTO) 0.5 (0.0-0.4); EOSINOPHILS % 4.7 % (0.0-6.0); HEMATOCRIT 26.3 % (34.2-44.1); LYMPHOCYTES # (AUTO) 1.7 (1.0-3.2); MEAN CORPUSCULAR HEMOGLOBIN 27.3 pg (28-32); MEAN CORPUSCULAR HGB CONC 30.4 g/dL (31-35); MEAN CORPUSCULAR VOLUME 89.8 fL (81-99); MONOCYTES # (AUTO) 0.9 (0.2-0.8); MONOCYTES % 9.2 % (4.4-11.3); NEUTROPHILS # (AUTO) 6.4 (2.1-6.9); NEUTROPHILS % 66.3 % (38.7-80.0); PLATELET COUNT 533 x10e3/uL (140-360); RED BLOOD COUNT 2.93 x10e6/uL (3.6-5.1); RED CELL DISTRIBUTION WIDTH 14.5 % (11.7-14.4)
[2019-06-04 03:49] LABS: ANION GAP 15.9 mmol/L (8-16); CALCIUM 9.9 mg/dL (8.4-10.2); CREATININE, SERUM 1.66 mg/dL (0.57-1.11); POTASSIUM 4.9 mmol/L (3.5-5.1)
--- NOTE | 2019-06-04 06:21 | Diagnostic Imaging Report ---
EXAMINATION: PA and lateral views of the chest. COMPARISON: Chest without contrast CT 06/01/2019, 05/31/2019 chest radiograph CLINICAL HISTORY: Pneumonia DISCUSSION: The lungs remain reasonably well inflated. Interval worsening interstitial opacities relative to 05/31/2019. Left pleural effusion has increased in size with worsening airspace disease in the left lung base. No acute osseous abnormality. IMPRESSION: Worsening interstitial edema and enlarging left pleural effusion relative to 05/31/2019 Signed by: Dr. Amadou Park M.D. on 06/04/2019 6:18 AM
[2019-06-04] MEDS: IPRATROPIUM BROMIDE 0.02% 2.5 ML NEB NEB SCH ×3 (07:00→19:00)
--- NOTE | 2019-06-04 07:09 | NUR ---
Walking rounds done. Pt without any complaints at this time. call fisher within reach.
[2019-06-04] MEDS: FAMOTIDINE 20 MG TAB PO SCH ×2 (07:47→16:54)
[2019-06-04] MEDS: AMLODIPINE BESYLATE 10 MG TAB PO SCH (07:48)
[2019-06-04] MEDS: GEMFIBROZIL 600 MG TAB PEG SCH ×2 (08:01→17:23)
[2019-06-04] MEDS: CYANOCOBALAMIN INJ 1,000 MCG/ML VIAL IM SCH (08:01)
[2019-06-04] MEDS: GUAIFENESIN 600MG/DEXTROMETHORPHAN 30MG TABSR PO SCH ×2 (08:01→17:23)
[2019-06-04] MEDS: METOPROLOL TARTRATE 25 MG TAB PO SCH ×2 (08:01→17:23)
[2019-06-04] MEDS: FOLIC ACID 1 MG TAB PO SCH (08:01)
[2019-06-04] MEDS: CITALOPRAM HYDROBROMIDE 20 MG TAB PO SCH (08:01)
[2019-06-04] MEDS: FUROSEMIDE INJ 10 MG/ML 2 ML VIAL IV SCH ×2 (08:01→17:23)
[2019-06-04] MEDS: IRON SUCROSE 100 MG in SODIUM CHLORIDE 0.9% 100 ML 100 ML IV SCH (08:02)
--- NOTE | 2019-06-04 10:41 | Progress Note ---
DATE: Pulmonary Progress Note SUBJECTIVE: The patient has less dyspnea. She feels improved overall. She still has some nonproductive cough. PHYSICAL EXAMINATION: VITAL SIGNS: The blood pressure is 108/93, the saturation is 98%. HEENT: Shows no facial swelling or erythema. CARDIAC: Reveals regular rate and rhythm with a normal S1, S2. There are no murmurs or rubs heard. LUNGS: Auscultation of lungs shows clear breath sounds bilaterally. There is no wheezing. ABDOMEN: Soft, nontender. There is no rebound or guarding. EXTREMITIES: Shows no leg edema or calf tenderness. There is no cyanosis or clubbing. SKIN: Shows no rashes. NEUROLOGICAL: Shows no focal abnormalities. RADIOGRAPHIC DATA: Chest x-ray shows some interstitial edema and varying left pleural effusion. IMPRESSION: 1. Chronic renal failure, stage 3. 2. Tivav-jc-yxesuiu diastolic heart failure. 3. Diabetes. 4. Hypertension. PLAN: 1. Continue antibiotics. 2. Discussed increasing diuretics with Cardiology and Nephrology. 3. Continue to monitor renal function. 4. Continue to control blood pressure. Cristobal Donahue MD [facility] /[id number]
--- NOTE | 2019-06-04 12:44 | NUR ---
PATIENT CONTINUES TO TAKE OFF BIPAP WITHOUT ASSISTANCE, AND WANTS TO EAT LUNCH WITH 02 SATS IN 70'S PATIENT REFUSES TO GO ON BIPAP AND WANTS TO CONTINUE EATING LUNCH, WILL CONTINUE TO MONITOR
[2019-06-04] MEDS ORDERED: SODIUM CHLORIDE 0.9% 250ML 250 ML ONE (13:48)
[2019-06-04] MEDS: AZITHROMYCIN 500MG/NS 250 ML 250 ML IV SCH (13:57)
[2019-06-04] MEDS: CEFTRIAXONE SOD 1 GM/NS 50 ML 50 ML IV SCH (13:57)
[2019-06-04] MEDS: FLUCONAZOLE 200 MG/100 ML 100 ML IV SCH (14:02)
--- NOTE | 2019-06-04 15:22 | NUR ---
nurse deferred tx due to sats drop in the low 70's. f/u on 06-05-19 Addendum: 06/04/19 at 1523 by Silvestre Grimaldo PTA Amended: Links added.
--- NOTE | 2019-06-04 17:31 | NUR ---
INFORMED KARUNA RANGEL PATIENT IS DEPRESSED AND HAS FEELINGS OF HOPELESSNESS, ORDERS RECEIVED FOR PSYCH CONSULT, CALLED TO DR WILKINSON, SPOKE TO NIDHI WITH ANSWERING SERVICE
--- NOTE | 2019-06-04 19:30 | NUR ---
Patient assisted to recliner per request with Bi-pap on. POC discussed. Patient instructed to call for assistance as needed and verbalized understanding. Call fisher within reach.
[2019-06-04] MEDS: MELATONIN 5 MG TABLET PO PRN (21:03)
[2019-06-05] VITALS (8 sets, daily range): BP systolic 123–149; BP diastolic 68–84
[2019-06-05] MEDS: IPRATROPIUM BROMIDE 0.02% 2.5 ML NEB NEB SCH ×4 (01:00→19:00)
--- NOTE | 2019-06-05 02:05 | NUR ---
Dr. Gay Forrest making rounds at bedside. Patient is sitting up in recliner with Bi-Pap on, sat 97%. All questions answered by MD. Call fisher within reach.
[2019-06-05] MEDS: ALBUTEROL/IPRATROPIUM 3 ML NEB NEB SCH ×6 (03:30→23:40)
[2019-06-05 05:25] LABS: BASOPHILS # (AUTO) 0.1 (0.0-0.1); BASOPHILS % 1.5 % (0.0-1.0); EOSINOPHILS # (AUTO) 0.3 (0.0-0.4); HEMATOCRIT 25.3 % (34.2-44.1); HEMOGLOBIN 7.6 g/dL (12.0-16.0); LYMPHOCYTES # (AUTO) 1.7 (1.0-3.2); LYMPHOCYTES % 19.7 % (18.0-39.1); MONOCYTES # (AUTO) 0.9 (0.2-0.8); MONOCYTES % 10.1 % (4.4-11.3); NEUTROPHILS # (AUTO) 5.4 (2.1-6.9); PLATELET COUNT 557 x10e3/uL (140-360); RED BLOOD COUNT 2.81 x10e6/uL (3.6-5.1); RED CELL DISTRIBUTION WIDTH 14.2 % (11.7-14.4)
[2019-06-05 05:45] LABS: ANION GAP 17.8 mmol/L (8-16); CALCIUM 9.8 mg/dL (8.4-10.2); CREATININE, SERUM 1.62 mg/dL (0.57-1.11); POTASSIUM 4.8 mmol/L (3.5-5.1)
[2019-06-05] MEDS: IRON SUCROSE 100 MG in SODIUM CHLORIDE 0.9% 100 ML 100 ML IV SCH (08:04)
[2019-06-05] MEDS: GEMFIBROZIL 600 MG TAB PEG SCH ×2 (08:04→16:31)
[2019-06-05] MEDS: GUAIFENESIN 600MG/DEXTROMETHORPHAN 30MG TABSR PO SCH ×2 (08:04→16:31)
[2019-06-05] MEDS: FUROSEMIDE INJ 10 MG/ML 2 ML VIAL IV SCH ×2 (08:04→16:31)
[2019-06-05] MEDS: CYANOCOBALAMIN INJ 1,000 MCG/ML VIAL IM SCH (08:04)
[2019-06-05] MEDS: FOLIC ACID 1 MG TAB PO SCH (08:04)
[2019-06-05] MEDS: METOPROLOL TARTRATE 25 MG TAB PO SCH ×2 (08:04→16:32)
[2019-06-05] MEDS: CITALOPRAM HYDROBROMIDE 20 MG TAB PO SCH (08:04)
[2019-06-05] MEDS: FAMOTIDINE 20 MG TAB PO SCH ×2 (08:04→16:31)
--- NOTE | 2019-06-05 10:31 | Progress Note ---
DATE: SUBJECTIVE: The patient feels better. She has less dyspnea. She had a Rocha placed yesterday. PHYSICAL EXAMINATION: VITAL SIGNS: The patient is afebrile. The blood pressure is 149/74. Saturation is 93%. HEENT: Shows no facial swelling or erythema. CARDIAC: Reveals regular rate and rhythm with normal S1 and S2. There are no murmurs or rubs. LUNGS: Auscultation of lungs shows clear breath sounds bilaterally. There is no wheezing. ABDOMEN: Soft, nontender. There is no rebound or guarding. EXTREMITIES: Shows 1+ leg edema. IMPRESSION: 1. Pyyvr-bv-chywdub renal failure. 2. Muzff-jx-yixhrdv diastolic heart failure. 3. Diabetes. 4. Hypertension. PLAN: 1. Continue diuretics. 2. Continue to monitor renal function. 3. Continue to monitor blood sugar and adjust insulin. 4. Continue to control blood pressure. 5. Physical therapy. MD MARIN [place]/[facility] /[id number]
[2019-06-05] MEDS: MICONAZOLE NITRATE 45 GM CR VG SCH ×2 (10:55→21:41)
[2019-06-05] MEDS: CEFTRIAXONE SOD 1 GM/NS 50 ML 50 ML IV SCH (11:55)
--- NOTE | 2019-06-05 12:34 | Diagnostic Imaging Report ---
PROCEDURE: X-RAY MODIFIED BARIUM SWALLOW COMPARISON: None. INDICATION: Dysphasia Radiation Details: Fluoroscopy time: 1.0 minutes Cumulative dose: 2.56 mGy DISCUSSION: Fluoroscopic examination was performed in conjunction with speech pathology during swallowing a variety of thin and thick liquid consistencies. Provided images demonstrate no subglottic tracheal or aspiration. CONCLUSION: Modified barium swallow as above. Please refer to the speech pathology report for further details. Signed by: Dr. Robert Lugo MD on 06/05/2019 12:31 PM
[2019-06-05] MEDS: AZITHROMYCIN 500MG/NS 250 ML 250 ML IV SCH (13:34)
[2019-06-05] MEDS: FLUCONAZOLE 200 MG/100 ML 100 ML IV SCH (15:17)
--- NOTE | 2019-06-05 16:04 | Consultation ---
DATE OF CONSULTATION: Psychiatric Initial Evaluation CHIEF COMPLAINT: For evaluation of depression and anxiety. HISTORY OF PRESENT ILLNESS: The patient is a 68-year-old female who is admitted to [facility] because of hypoxemia and fever. Psychiatry consult is called to evaluate the patient's depression and anxiety during her inpatient stay. Upon evaluation today, the patient is found to be lying on her bed. She is alert, awake, and oriented x3. The patient appears anxious, but claimed that she is feeling better. She denies feeling depressed at this time. She denies feeling hopeless and helpless. She claimed that she is able to sleep and eat very well. She denies any hallucinations and denies any suicidal ideation at present. Upon further enquiry, the patient reported that she was very stressed yesterday and during one of the procedures, she became overwhelmed and made some suicidal statements, but she did not mean to hurt herself. She claims that she is doing well on her current medications and denies any other psychiatric problems. As per the nursing staff, the patient has been having mood swings. She has been feeling depressed and anxious at times. She will be needing some p.r.n. medications for her mood and anxiety. PAST PSYCHIATRIC HISTORY: The patient states that she has been treated for depression and anxiety in the past. She has never attempted any suicide. She denies drinking alcohol and denies abusing any recreational drugs. FAMILY HISTORY: The patient's son suffers from psychiatric illness, but he is adopted. SOCIAL HISTORY: The patient currently lives with her daughter and son. CURRENT LABS: WBC 8.43, hemoglobin 7.6, hematocrit 25.3, and platelets 557. Sodium 136, potassium 4.8, chloride 107, carbon dioxide 16, BUN 35, and creatinine 1.62. CURRENT MEDICATIONS: Azithromycin, Rocephin, albuterol, Celexa 40 mg p.o. daily, Pepcid, folic acid, Lasix, and melatonin. MENTAL STATUS EXAMINATION: The patient is an elderly female, who is currently lying on her bed with BiPAP machine. She is alert, awake, and oriented x3. Her mood is anxious with appropriate affect. She denies any suicidal or homicidal ideation at present. She denies any abnormal perceptions at present. No delusions are elucidated. Her thought process is goal directed. Her insight and judgement are fair. CURRENT DIAGNOSES: 1. Major depressive disorder, recurrent, moderate. 2. Rule out generalized anxiety disorder. PLAN OF CARE: 1. Continue Celexa 40 mg p.o. daily. 2. Add Ativan 0.5 mg p.o. q.6 hours p.r.n. for anxiety. 3. Supportive therapy. We will continue to follow this patient during her inpatient stay. Thank you very much for this consult. Alicia Fernandez MD [facility] /[id number]
--- NOTE | 2019-06-05 20:00 | NUR ---
Bath given, linen changed and patient assisted up to recliner with Bi-pap per request. Call fisher within reach.
[2019-06-05] MEDS: MELATONIN 5 MG TABLET PO PRN (21:30)
[2019-06-06] VITALS (8 sets, daily range): BP systolic 129–142; BP diastolic 49–96
[2019-06-06] MEDS: IPRATROPIUM BROMIDE 0.02% 2.5 ML NEB NEB SCH ×4 (00:37→19:00)
--- NOTE | 2019-06-06 02:00 | NUR ---
Patient is restless states " she just wants to go home already' Patient reassured. She stated, "I am fine." Call fisher within reach.
[2019-06-06] MEDS: ACETAMINOPHEN 325 MG TAB PO PRN ×3 (02:20→21:46)
--- NOTE | 2019-06-06 03:39 | NUR ---
Dr. Estrada in room making rounds. No new orders at this time. call fisher within reach.
[2019-06-06] MEDS: ALBUTEROL/IPRATROPIUM 3 ML NEB NEB SCH ×6 (03:45→23:00)
[2019-06-06 05:30] LABS: BASOPHILS # (AUTO) 0.1 (0.0-0.1); BASOPHILS % 1.2 % (0.0-1.0); EOSINOPHILS # (AUTO) 0.3 (0.0-0.4); EOSINOPHILS % 4.4 % (0.0-6.0); HEMATOCRIT 24.3 % (34.2-44.1); HEMOGLOBIN 7.5 g/dL (12.0-16.0); LYMPHOCYTES # (AUTO) 1.4 (1.0-3.2); LYMPHOCYTES % 19.1 % (18.0-39.1); MEAN CORPUSCULAR HEMOGLOBIN 27.7 pg (28-32); MEAN CORPUSCULAR HGB CONC 30.9 g/dL (31-35); MEAN CORPUSCULAR VOLUME 89.7 fL (81-99); MONOCYTES # (AUTO) 0.7 (0.2-0.8); MONOCYTES % 10.2 % (4.4-11.3); NEUTROPHILS # (AUTO) 4.7 (2.1-6.9); NEUTROPHILS % 64.5 % (38.7-80.0); PLATELET COUNT 542 x10e3/uL (140-360); RED BLOOD COUNT 2.71 x10e6/uL (3.6-5.1); RED CELL DISTRIBUTION WIDTH 14.3 % (11.7-14.4)
[2019-06-06 05:48] LABS: ANION GAP 17.2 mmol/L (8-16); CALCIUM 9.7 mg/dL (8.4-10.2); CREATININE, SERUM 1.51 mg/dL (0.57-1.11); MAGNESIUM 1.8 MG/DL (1.3-2.1); POTASSIUM 4.2 mmol/L (3.5-5.1)
--- NOTE | 2019-06-06 07:00 | NUR ---
Walking rounds done and report given. Call fisher within reach.
[2019-06-06] MEDS: FAMOTIDINE 20 MG TAB PO SCH ×2 (07:53→17:05)
[2019-06-06] MEDS: IRON SUCROSE 100 MG in SODIUM CHLORIDE 0.9% 100 ML 100 ML IV SCH (08:51)
--- NOTE | 2019-06-06 09:45 | Diagnostic Imaging Report ---
CT of the chest, without contrast. History: Pleural effusions, edema. Comparison: CT chest without contrast from 06/01/2019. Technique: Multidetector CT scanning of the chest was performed from the level of the apices to the upper abdomen without contrast. Coronal and sagittal multiplanar reformations were obtained. RADIATION DOSE: Total DLP: 499.96 mGy*cm Dose modulation, iterative reconstruction, and/or weight based adjustment of the mA/kV was utilized to reduce the radiation dose to as low as reasonably achievable. FINDINGS: The thyroid and remaining visual structures within the base of the neck demonstrate no significant abnormalities. The thoracic aorta is normal course and caliber with mild left sclerotic calcifications. The heart is at the upper limits of normal for size and there is a small pericardial effusion present, unchanged from the prior examination. Extensive coronary artery calcification again noted. Multiple normal-sized mediastinal lymph nodes again noted. Additionally, there are calcified mediastinal hilar lymph nodes suggestive of prior granulomatous disease. The trachea and proximal airways are patent. There are small bilateral pleural effusions, slightly more prominent than the examination. There is associated atelectasis/consolidation of the bilateral lower lobes. There has been an interval increase in bilateral interlobular septal thickening and groundglass opacities. Multiple subcentimeter groundglass/sub-solid opacities identified bilaterally which were not present on the prior examination. The largest measures 6 mm and is located within the right upper lobe (axial image 24). There is no evidence for pneumothorax. A calcified granuloma is noted within the right lower lobe. The visualized upper abdominal contents are unchanged/unremarkable. The osseous structures demonstrate stable degenerative changes without evidence for acute fracture or destructive process. IMPRESSION: 1. Small bilateral pleural effusions, slightly increased from the prior examination. There is associated atelectasis/consolidation of the bilateral lower lobes. 2. Interval increase in interlobular septal thickening and bilateral groundglass opacities which can be seen in the setting of edema or an atypical infectious/inflammatory process. 3. Stable small pericardial effusion. 4. Additional stable findings as above. Signed by: Dr. Robert Lugo MD on 06/06/2019 9:42 AM
[2019-06-06] MEDS: FOLIC ACID 1 MG TAB PO SCH (10:08)
[2019-06-06] MEDS: CYANOCOBALAMIN INJ 1,000 MCG/ML VIAL IM SCH (10:08)
[2019-06-06] MEDS: CITALOPRAM HYDROBROMIDE 20 MG TAB PO SCH (10:08)
[2019-06-06] MEDS: GUAIFENESIN 600MG/DEXTROMETHORPHAN 30MG TABSR PO SCH ×2 (10:08→17:05)
[2019-06-06] MEDS: GEMFIBROZIL 600 MG TAB PEG SCH ×2 (10:08→17:05)
[2019-06-06] MEDS: FUROSEMIDE INJ 10 MG/ML 2 ML VIAL IV SCH ×3 (10:08→22:00)
[2019-06-06] MEDS: METOPROLOL TARTRATE 25 MG TAB PO SCH ×2 (10:27→17:29)
[2019-06-06] MEDS: CEFTRIAXONE SOD 1 GM/NS 50 ML 50 ML IV SCH (13:45)
[2019-06-06] MEDS: FLUCONAZOLE 200 MG/100 ML 100 ML IV SCH (15:17)
--- NOTE | 2019-06-06 16:10 | Progress Note ---
DATE: SUBJECTIVE: The patient has less dyspnea. She has less cough. She is still requiring oxygen. PHYSICAL EXAMINATION: VITAL SIGNS: The patient is afebrile. The vital signs are stable. HEENT: Shows no facial swelling or erythema. CARDIAC: Reveals regular rate and rhythm with normal S1 and S2. LUNGS: Auscultation of lungs reveal crackles at both bases. There is no wheezing. ABDOMEN: Soft and nontender. There is no rebound or guarding. EXTREMITIES: Show trace leg edema. IMPRESSION: 1. Acute on chronic diastolic heart failure. 2. Acute on chronic renal failure secondary to diabetes. 3. Resolving aspiration pneumonia. 4. Diabetes. 5. Hypertension. PLAN: 1. Increased diuretics. 2. Fluid restriction. 3. Continue to monitor blood sugars. 4. Continue current cardiac regimen. 5. Continue speech therapy. Cristobal Donahue MD [facility] /[id number]
[2019-06-06] MEDS ORDERED: DEXTROSE 50% SYRINGE 50 ML IV PRN (17:00)
[2019-06-06] MEDS: INSULIN REGULAR, HUMAN 100 UNIT/1 ML 3ML VIAL SQ SCH ×2 (17:37→21:00)
--- NOTE | 2019-06-06 18:28 | NUR ---
Nutrition Follow-up Note RD Recommendation(s) for Physician: Continue diet as ordered Plan of Care: RD following, monitoring for tolerance and adequacy Nutrition reason for involvement: Follow up RD Assessment 06/06 Visited pt in the room. OFFICE AUDITOR was on bedside, providing NMES treatment. Pt reported good tolerance with current diet texture. Appetite has improved. Pt was aware of fluids restriction. RD has answered all her questions regarding to fluids restriction and diabetic diet. LBM 06/06. No GI complains reported. Blood glucose was well controlled with HbA1c at 6.5%. No other concern at this time. 06/02 - Initial encounter with patient. Diet Hx: Pt has no known food allergies. Pt states that she follows a low carbohydrate diet at home. Pt is also fearful that she may be aspirating and concerned about high blood glucose levels. Pt had a blood glucose level of 52 and has been encouraged to eat diabetes medications were held. Awaiting MBS which is scheduled on 06/05. Pt denies any nausea, vomiting or diarrhea. Pt denies any chewing/biting difficulty. Principal Problems/Diagnoses: Bacterial pneumonia, dyspnea PMH: CVA, HTN, T2DM GI: soft, non-tender, round Skin: intact skin Labs: (06/06/2019) Na 133 L, BUN 34 H, Creatinine 1.51 H, glucose 159 H (06/02/2019) blood glucose level 52, K 5.4, Na 141, Bun/Cr 33/1.66 Meds: lopressor, pepcid, lopid, lasix, folic acid, vitamin B12 Ht:66 in. Wt:237lbs; 216.03lb BMI:38.3kg/M2 IBW:130lbs Malnutrition Evaluation (06/02/19) The patient does not meet criteria for a specified degree of malnutrition at this time. Will re-evaluate at follow-up as appropriate. Nutrition Prescription (Diet Order):1800 ADA Estimated Nutritional Needs: Calorie: 1475 1770kcal (25-30kcal/kg/d) Weight used: IBW Protein: 88 118g (1.5 2g/kg/d) Weight used: IBW Diet Adequacy: meeting calorie needs, meeting protein needs Diet Education Needs Assessment: 06/02 - Diet education indicated, but patient declined. Nutrition Care Level: Low Nutrition Diagnosis: No nutrition diagnosis at this time. Goal: Patient will meet 75-100% of estimated needs by follow up Progress: Progressing Interventions: modified diet Monitoring/Evaluation: Total energy intake, Total protein intake, Modified diet, Weight change Signed: Sharona Bazzi MS, RD, LD
[2019-06-06] MEDS: MICONAZOLE NITRATE 45 GM CR VG SCH (21:44)
[2019-06-06] MEDS: LORAZEPAM 0.5 MG TAB PO PRN (22:00)
[2019-06-07] VITALS (8 sets, daily range): BP systolic 142–148; BP diastolic 52–78
[2019-06-07] MEDS: IPRATROPIUM BROMIDE 0.02% 2.5 ML NEB NEB SCH ×4 (01:00→19:00)
[2019-06-07] MEDS: ALBUTEROL/IPRATROPIUM 3 ML NEB NEB SCH ×6 (03:00→23:34)
[2019-06-07 05:45] LABS: BASOPHILS # (AUTO) 0.1 (0.0-0.1); BASOPHILS % 1.3 % (0.0-1.0); EOSINOPHILS # (AUTO) 0.5 (0.0-0.4); EOSINOPHILS % 5.8 % (0.0-6.0); HEMATOCRIT 25.2 % (34.2-44.1); HEMOGLOBIN 7.9 g/dL (12.0-16.0); LYMPHOCYTES # (AUTO) 1.4 (1.0-3.2); LYMPHOCYTES % 16.8 % (18.0-39.1); MEAN CORPUSCULAR HEMOGLOBIN 27.7 pg (28-32); MEAN CORPUSCULAR HGB CONC 31.3 g/dL (31-35); MEAN CORPUSCULAR VOLUME 88.4 fL (81-99); MONOCYTES # (AUTO) 0.9 (0.2-0.8); MONOCYTES % 10.5 % (4.4-11.3); NEUTROPHILS # (AUTO) 5.6 (2.1-6.9); NEUTROPHILS % 64.7 % (38.7-80.0); PLATELET COUNT 608 x10e3/uL (140-360); RED BLOOD COUNT 2.85 x10e6/uL (3.6-5.1); RED CELL DISTRIBUTION WIDTH 14.5 % (11.7-14.4)
[2019-06-07 06:06] LABS: ALBUMIN 2.5 g/dL (3.5-5.0); ALBUMIN/GLOBULIN RATIO 0.7 (0.8-2.0); ANION GAP 17.2 mmol/L (8-16); CALCIUM 10.1 mg/dL (8.4-10.2); CREATININE, SERUM 1.48 mg/dL (0.57-1.11); POTASSIUM 4.2 mmol/L (3.5-5.1)
[2019-06-07] MEDS: FUROSEMIDE INJ 10 MG/ML 2 ML VIAL IV SCH (06:40)
--- NOTE | 2019-06-07 06:55 | NUR ---
patient endorsed to next shift for continuity of care.
--- NOTE | 2019-06-07 07:15 | NUR ---
Notified Estella Olguin NP patient's glucose 171 with lab draw, asked for sliding scale per Estella patient's glucose dropping too low after given insulin. No orders received for sliding scale.
[2019-06-07] MEDS: IRON SUCROSE 100 MG in SODIUM CHLORIDE 0.9% 100 ML 100 ML IV SCH (07:36)
[2019-06-07] MEDS: FAMOTIDINE 20 MG TAB PO SCH ×2 (07:36→17:19)
[2019-06-07] MEDS: ACETAMINOPHEN 325 MG TAB PO PRN (08:05)
[2019-06-07] MEDS: GUAIFENESIN 600MG/DEXTROMETHORPHAN 30MG TABSR PO SCH ×2 (08:13→17:19)
[2019-06-07] MEDS: CYANOCOBALAMIN INJ 1,000 MCG/ML VIAL IM SCH (08:13)
[2019-06-07] MEDS: CITALOPRAM HYDROBROMIDE 20 MG TAB PO SCH (08:13)
[2019-06-07] MEDS: GEMFIBROZIL 600 MG TAB PEG SCH ×2 (08:13→17:19)
[2019-06-07] MEDS: FOLIC ACID 1 MG TAB PO SCH (08:13)
[2019-06-07] MEDS: METOPROLOL TARTRATE 25 MG TAB PO SCH ×2 (09:00→17:27)
[2019-06-07] MEDS ORDERED: ONDANSETRON HCL 4 MG ORAL DISINTEGRATING TAB PO PRN (09:15)
--- NOTE | 2019-06-07 12:46 | NUR ---
ORDER FOR LTAC EVAL CM WENT TO SPEAK WITH PT REGARDING LTAC EVAL AND TO GET CHOICE LETTER PT REFUSED TO SIGN WANTS TO SPEAK WITH HER DTR FIRST GAVE PT MY CARD AND NUMBER TO CALL AFTER SHE SPEAKS WITH DTR AWAIT PT DECISION EXPLAINED THE BENEFITS OF LTAC IN HER COMPLEX MEDICAL CONDITION
[2019-06-07] MEDS: CEFTRIAXONE SOD 1 GM/NS 50 ML 50 ML IV SCH (12:51)
[2019-06-07] MEDS: FLUCONAZOLE 200 MG/100 ML 100 ML IV SCH (14:00)
[2019-06-07] MEDS: FUROSEMIDE INJ 10 MG/ML 4 ML VIAL IV SCH ×2 (14:00→20:51)
--- NOTE | 2019-06-07 18:53 | Progress Note ---
DATE: SUBJECTIVE: The patient feels better overall. She has less leg edema. She has less dyspnea, but is still requiring significant oxygen. PHYSICAL EXAMINATION: VITAL SIGNS: The patient is afebrile. Her pulse is 76, and her blood pressure is 146/78. Her saturation is 99% on high-flow oxygen. CARDIAC: Reveals regular rate and rhythm with a normal S1 and S2. There are no murmurs or rubs heard. LUNGS: Auscultation of lungs reveals a few crackles at the bases. There is no wheezing. ABDOMEN: Soft, nontender. There is no rebound or guarding. EXTREMITIES: Show no leg edema or calf tenderness. There is no cyanosis or clubbing. IMPRESSION: 1. Lbxqy-cm-oafthgb diastolic heart failure. 2. Qwmxq-eb-apxrizb renal failure secondary to diabetes. 3. Resolving aspiration pneumonia. 4. Diabetes. 5. Hypertension. PLAN: 1. Continue diuretics. The patient may require some albumin as well to facilitate diuresis. 2. Continue to monitor blood sugars and renal function. 3. Continue current cardiac regimen. 4. Wean oxygen. Cristobal Donahue MD [facility] /[id number]
[2019-06-07] MEDS: MELATONIN 5 MG TABLET PO PRN (20:30)
[2019-06-07] MEDS: MICONAZOLE NITRATE 45 GM CR VG SCH (20:51)
[2019-06-07] MEDS: LORAZEPAM 0.5 MG TAB PO PRN (22:07)
[2019-06-08] VITALS (8 sets, daily range): BP systolic 130–145; BP diastolic 65–96
[2019-06-08] MEDS: ACETAMINOPHEN 325 MG TAB PO PRN ×2 (00:56→19:55)
[2019-06-08] MEDS: IPRATROPIUM BROMIDE 0.02% 2.5 ML NEB NEB SCH ×4 (01:00→19:00)
[2019-06-08] MEDS: ALBUTEROL/IPRATROPIUM 3 ML NEB NEB SCH ×5 (03:00→19:30)
[2019-06-08] MEDS ORDERED: ALBUMIN 25% 25GM 100ML 0.25 GM/ML BTL IV ONE ×2 (05:15→05:30)
[2019-06-08] MEDS: FUROSEMIDE INJ 10 MG/ML 4 ML VIAL IV SCH (05:34)
[2019-06-08 05:36] LABS: BASOPHILS # (AUTO) 0.1 (0.0-0.1); BASOPHILS % 1.1 % (0.0-1.0); EOSINOPHILS # (AUTO) 0.4 (0.0-0.4); EOSINOPHILS % 4.4 % (0.0-6.0); HEMATOCRIT 27.5 % (34.2-44.1); HEMOGLOBIN 8.3 g/dL (12.0-16.0); LYMPHOCYTES # (AUTO) 1.7 (1.0-3.2); LYMPHOCYTES % 17.1 % (18.0-39.1); MEAN CORPUSCULAR HEMOGLOBIN 27.2 pg (28-32); MEAN CORPUSCULAR HGB CONC 30.2 g/dL (31-35); MEAN CORPUSCULAR VOLUME 90.2 fL (81-99); MONOCYTES # (AUTO) 0.9 (0.2-0.8); MONOCYTES % 8.7 % (4.4-11.3); NEUTROPHILS # (AUTO) 6.8 (2.1-6.9); NEUTROPHILS % 67.9 % (38.7-80.0); PLATELET COUNT 621 x10e3/uL (140-360); RED BLOOD COUNT 3.05 x10e6/uL (3.6-5.1); RED CELL DISTRIBUTION WIDTH 14.6 % (11.7-14.4)
[2019-06-08 06:02] LABS: CREATININE, SERUM 1.49 mg/dL (0.57-1.11)
--- NOTE | 2019-06-08 06:26 | Diagnostic Imaging Report ---
EXAMINATION: CHEST SINGLE (PORTABLE) COMPARISON: CT chest 06/06/2019, chest x-ray 06/04/2019 INDICATION: Shortness of breath, pulmonary edema ^SOB ^[id number] ^[id number] DISCUSSION: Frontal view of the chest obtained at 0551 hours. HEART AND MEDIASTINUM: Stable mild cardiomegaly. The left heart border remains obscured. Fullness of the pulmonary arteries is stable LINES: None. LUNGS: Bilateral upper lobe airspace opacities are increasing, right lung greater than left. Retrocardiac airspace disease is similar. PLEURA: Small left pleural effusion. Trace right pleural effusion. No pneumothorax. BONES AND SOFT TISSUES: No focal osseous lesion. The soft tissues are normal. IMPRESSION: Increasing upper lobe airspace opacities suggestive of edema or pneumonia. Retrocardiac airspace disease is similar, either atelectasis or pneumonia. Small pleural effusions, left larger than right. Signed by: Dr. Theo Schultz MD on 06/08/2019 6:23 AM
[2019-06-08] MEDS: ALBUMIN 25% 25GM 100ML 0.25 GM/ML BTL IV ONE ×2 (07:13→07:56)
[2019-06-08] MEDS: FAMOTIDINE 20 MG TAB PO SCH ×2 (07:55→17:19)
[2019-06-08] MEDS: GUAIFENESIN 600MG/DEXTROMETHORPHAN 30MG TABSR PO SCH ×2 (08:03→17:20)
[2019-06-08] MEDS: IRON SUCROSE 100 MG in SODIUM CHLORIDE 0.9% 100 ML 100 ML IV SCH (08:03)
[2019-06-08] MEDS: CITALOPRAM HYDROBROMIDE 20 MG TAB PO SCH (08:03)
[2019-06-08] MEDS: GEMFIBROZIL 600 MG TAB PEG SCH ×2 (08:03→17:19)
[2019-06-08] MEDS: CYANOCOBALAMIN INJ 1,000 MCG/ML VIAL IM SCH (08:03)
[2019-06-08] MEDS: METOPROLOL TARTRATE 25 MG TAB PO SCH ×2 (08:03→17:19)
[2019-06-08] MEDS: FOLIC ACID 1 MG TAB PO SCH (08:03)
--- NOTE | 2019-06-08 10:29 | NUR ---
LISETTE SPOKE WITH PT'S DTR JUANY THIS AM [phone] REGARDING LTAC EVAL SHE AND PT ARE BOTH AGREEABLE CHOICE LETTER SIGNED AND PLACED ON CHART MOT INITIATED AND PLACED ON FRONT OF CHART LISETTE NOTIFIED THERESE WITH [facility] AREA OF CONSULT AND TRANSFER WHEN ACCEPTED SHE IS COMING TO GET CLINICALS NURSE ALYSSA NOTIFIED OF ABOVE ANTICIPATE TRANSFER THIS EVENING NURSE TO CALL [facility] AFTER PT ACCEPTED
--- NOTE | 2019-06-08 10:38 | NUR ---
ST NOTE: Pt wearing bi-pap, appears fatigued, refused NMES to treat dysphagia, handoff to MELLISA Harris
[2019-06-08] MEDS ORDERED: CEFEPIME 1GM/NS 0.9% 50 ML 50 ML IV SCH (12:30)
[2019-06-08] MEDS ORDERED: VANCOMYCIN 1GM/NS 250 ML 250 ML IV SCH (12:30)
--- NOTE | 2019-06-08 14:37 | Progress Note ---
DATE: Pulmonary Critical Care Progress Note SUBJECTIVE: The patient had significant diuresis yesterday with albumin and Lasix. She reports less dyspnea, but is still requiring significant amounts of oxygen. PHYSICAL EXAMINATION: VITAL SIGNS: The patient is afebrile. The blood pressure is 130/65, saturation is 95% on 10 L. HEENT: Shows no facial swelling or erythema. CARDIAC: Reveals regular rate and rhythm with normal S1 and S2. There are no murmurs or rubs. LUNGS: Auscultation of lungs reveals crackles in both lung mcdaniels. ABDOMEN: Soft, nontender. There is no rebound or guarding. EXTREMITIES: Show no leg edema or calf tenderness. There is no cyanosis or clubbing. SKIN: Shows no rashes. LABORATORY DATA: The BUN to creatinine ratio is 32:1.49. The carbon dioxide is 18. The BNP is 1233. IMPRESSION: 1. Acute on chronic diastolic heart failure. 2. Acute on chronic renal failure secondary to diabetes. 3. Resolving aspiration pneumonia. 4. Left pleural effusion. 5. Diabetes. 6. Hypertension. PLAN: 1. Continue diuretics. 2. Continue to monitor blood sugars and renal function. 3. The patient is planning for transfer to [place]. 4. Wean oxygen. 5. Physical therapy. Cristobal Donahue MD [facility] /[id number]
--- NOTE | 2019-06-08 17:50 | NUR ---
INFORMED HOUSE SUPP, THAT REPORT CALLED TO [facility] AND THAT PATIENT REQUIRES AMBULANCE WITH BIPAP
--- NOTE | 2019-06-08 18:08 | Consultation ---
DATE OF CONSULTATION: REASON FOR CONSULTATION: Recommendation antibiotic. HISTORY OF PRESENT ILLNESS: Ms. Pereira, who is a 68-year-old white female, known to me from before. She has history of obesity, cholecystectomy, hypertension, and diabetes mellitus. The patient comes in with shortness of breath and fever, came to the emergency room. She was diagnosed with community-acquired pneumonia. The patient was admitted on May 31. She was admitted to the hospital. She was seen by Pulmonary. She was seen by Cardiology. The patient, however, continued to have shortness of breath on oxygen. She gets easily short of breath. She denies any fever or chills at present time. She denies any nausea, vomiting, or diarrhea. She denies any other symptoms. She does have Rocha catheter. When she first came, she was placed on BiPAP. She also had atrial fibrillation. The patient, who does have history of hypertension, diabetes mellitus, cholecystectomy, carpal tunnel surgery, hyperlipidemia with home medications on admission lisinopril, Norvasc, and hydrochlorothiazide. ALLERGIES: HYDROCODONE. FAMILY HISTORY: Diabetes mellitus. REVIEW OF SYSTEMS: At the present time, the patient is doing better. HEENT: Negative. PULMONARY: Negative. CARDIAC: Negative. : Negative. GI: Negative. SKIN: No rash. JOINT: Chronic pain. LABORATORY DATA: When she first came, her laboratory data showed bilateral interstitial edema. She had chest CT, which showed bilateral lower lobe atelectasis, dense airspace consolidation, greater on the right. No evidence of interstitial lung disease. Her blood cultures have been negative. Urine culture is negative. Her white count since admission was within normal limit. Really, there is no change. Her white count is about 10.07. Sodium 137, potassium 4.0, and creatinine of 1.49. More recent chest x-ray showed increasing right upper lobe opacities, suggestive of edema and/or pneumonia. MEDICATIONS: She is on Lopressor, folic acid, vitamin B12, Lopid, Pepcid, and melatonin. She is currently on Rocephin. PHYSICAL EXAMINATION: GENERAL: She is currently alert and oriented. Does not seem to be in acute distress. VITAL SIGNS: Stable, currently afebrile. HEENT: She is not icteric. NECK: Supple. CHEST: Few crackles. HEART: S1 and S2. No S3, S4, or murmur. ABDOMEN: Soft. Bowel sounds present. No tenderness. EXTREMITIES: No edema. IMPRESSION: 1. Community-acquired pneumonia. 2. Progression and persistent upper shortness of breath. I think it has a new [id number] congestive heart failure. 3. Chronic kidney disease, probably acute exacerbation. 4. Diabetes mellitus. 5. Hypertension. 6. The patient, who is currently on Lopressor, folic acid, vitamin B12, iron supplement, Celexa, Lopid, Ativan, and melatonin. Her chest x-ray showed worsening of anything. Repeat CAT scan showed worsening process. I would recommend to put her on broader coverage to change the vancomycin and cefepime, may want to consider the use of steroid. I think there is a component of congestive heart failure, however, the patient has been followed by Cardiology and Pulmonary Critical Care. We will discuss with them. We will obtain lactic acid and procalcitonin level. We will adjust her kidney function. 7. Chronic kidney disease, stable. 8. We will follow. MD NANDINI Aguila/BACILIO /[id number]
--- NOTE | 2019-06-08 18:17 | Diagnostic Imaging Report ---
EXAMINATION: PA and lateral views of the chest. COMPARISON: 06/08/2019 CLINICAL HISTORY: Pulmonary edema DISCUSSION: Lines/tubes: None. Lungs: Stable edema. Stable opacity right lower lobe decreased opacity in left lower lobe. Heart and mediastinum: Prominent heart size. Bones and soft tissues: No acute bony abnormalities. IMPRESSION: Cardiomegaly with stable edema. Decreased left effusion/consolidation Signed by: Dr. Blaise Rae M.D. on 06/08/2019 6:13 PM
--- NOTE | 2019-06-08 20:20 | NUR ---
Patient discharge from unit to [facility] with EMS with stable condition @2011. Patient went with continue BIPAP. BP:143/69,HR:75,Temp:99.9 Resp:18 and Blood Sugar: 267.
[2019-06-09] MEDS ORDERED: FUROSEMIDE INJ 10 MG/ML 4 ML VIAL IV SCH (09:00)
--- NOTE | 2019-06-12 05:27 | Discharge Summary ---
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 HISTORY: Hypertension, hyperlipidemia, type 2 diabetes, depression, and anxiety. SURGICAL HISTORY: Right ankle ORIF, cholecystectomy, left carpal tunnel surgery, and bilateral cataract surgery. FAMILY HISTORY: The patient's mom has cancer. SOCIAL HISTORY: Noncontributory. HOSPITAL COURSE: A 68-year-old female complains of shortness of breath, productive cough and fever that began the day prior to admission. She attempted to see her primary care doctor before coming to the ER, but he was unavailable. She denies congestion and sick contacts. On admission, she was started on Zithromax, Rocephin, nebs, Mucinex, O2, and Pulmonary was consulted. CT of the chest showed bilateral lower lobe atelectasis with dense airspace consolidation, greater on the right. Underlying infection cannot be excluded. Small bilateral pleural effusions, greater on the right. Small pericardial effusion. Ultrasound of the abdomen showed hepatomegaly. Bilateral pleural effusions. She was started on IV Lasix. Blood cultures negative. Urine culture negative. Urine Legionella negative. Stool for blood negative. The patient initially required BiPAP only at bedtime, but was unable to wean off the BiPAP and so the plan was to transfer to [facility] for long-term care. She then had an MBS, which showed possible microaspiration. She was continued on regular diet and thin liquids, and enemas were ordered per Speech Therapy recommendation. ID was then consulted for vaginal candidiasis, which was not well controlled with Monistat and fluconazole. He broadened the antibiotic coverage. The patient was then transferred to [facility] without a discharge order. Apparently, the nurse took an order from case management once the room was available without getting an order from the attending physician. Dictated by Estella Olguin, JUAN CARLOS MD DENILSON Santos/BACILIO /[id number]
== END 2019-06-08 20:12 | DRG 871 ==
LOC: ER 12:29 → ERHOLD 13:25 → IMCU 17:52 → MED/SURG 06-05 17:46 → IMCU 06-05 17:47
PROVIDERS: ADMIT Internal Medicine; ATTEND Internal Medicine
PROC: 5A09357 Assistance with Respiratory Ventilation, Less than 24 Consecutive Hours, Continuous Positive Airway Pressure (ICD-10-PCS; principal; 2019-05-31)
DX: A41.9 Sepsis, unspecified organism (principal); J69.0 Pneumonitis due to inhalation of food and vomit; I50.33 Acute on chronic diastolic (congestive) heart failure; J96.01 Acute respiratory failure with hypoxia; I13.0 Hypertensive heart and chronic kidney disease with heart failure and stage 1 through stage 4 chronic kidney disease, or unspecified chronic kidney disease; E87.2 Acidosis; F33.1 Major depressive disorder, recurrent, moderate; N17.9 Acute kidney failure, unspecified; E78.5 Hyperlipidemia, unspecified; F41.9 Anxiety disorder, unspecified; Z88.5 Allergy status to narcotic agent; Z90.49 Acquired absence of other specified parts of digestive tract; Z80.9 Family history of malignant neoplasm, unspecified; D64.9 Anemia, unspecified; E11.22 Type 2 diabetes mellitus with diabetic chronic kidney disease; N18.3 Chronic kidney disease, stage 3 (moderate); E87.5 Hyperkalemia; E66.9 Obesity, unspecified; Z68.38 Body mass index [BMI] 38.0-38.9, adult; Z83.3 Family history of diabetes mellitus; Z82.49 Family history of ischemic heart disease and other diseases of the circulatory system; I48.0 Paroxysmal atrial fibrillation; Z79.82 Long term (current) use of aspirin; Z79.84 Long term (current) use of oral hypoglycemic drugs; N25.89 Other disorders resulting from impaired renal tubular function; F41.1 Generalized anxiety disorder; D50.0 Iron deficiency anemia secondary to blood loss (chronic); E83.52 Hypercalcemia; B37.3 Candidiasis of vulva and vagina; I69.398 Other sequelae of cerebral infarction
CPT/HCPCS: 36415; 36600; 71045; 71046; 71250; 74230; 76700; 80048; 80053; 80061; 81001; 81050; 82270; 82306; 82550; 82553; 82570; 82607; 82728; 82746; 82805; 82948; 83010; 83036; 83540; 83605; 83735; 83880; 83970; 84134; 84156; 84443; 84466; 84484; 85025; 85045; 85610; 85730; 86021; 86850; 86900; 87040; 87086; 87449; 93005; 93306; 94640; 94660; 97139; 99284; J0456; J0696; J1450; J1756; J1817; J1940; J2405; J3370; J3420; J7030; J7050; J7799; P9047